=== PATIENT | male | born 1995 | race Asian ===

== ENCOUNTER 2017-07-23 13:10 | Emergency (ER) | payer OTHER ==
[~2017-07-23] VITALS: Ht 175.3 cm; Wt 63.0 kg
[~2017-07-23 13:10] MED LIST: METH750T2 PO; MOBI15TA PO
[2017-07-23 13:20] VITALS: BP 129/80; PULSE 76; RESP 18; TEMP 98.9; O2SAT 100
[2017-07-23] MEDS ORDERED: SODIUM CHLOR 0.9% 1000 ML INJ 1,000 ML IV SCH (13:23)
[2017-07-23] MEDS ORDERED: ONDANSETRON HCL 4 MG/2 ML VIAL IVP ONE (13:30)
[2017-07-23] MEDS ORDERED: SODIUM CHLORIDE 0.9% FLUSH 10 ML FLUSH IV FLUSH PRN (13:30)
--- NOTE | 2017-07-23 13:33 | PD ---
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 Patient was brought in by ambulance with IV in place and status post 4 mg Zofran IV with improvement of his nausea and vomiting. Patient denies headache, lightheadedness, vertiginous symptoms, or recent illnesses. He denies sinus congestion. He has no cough, abdominal pain, or urinary symptoms. Patient states he has had similar symptoms to this in the past when the wind was rough. He has no known drug allergies. [facility]LY [facility] Social History Alcohol Use: No Tobacco Use: No Substance Use: No Allergies-Medications (Allergen,Severity, Reaction): Coded Allergies: No Known Allergies (Unverified , 12/13/14) Reported Meds & Prescriptions Reported Meds & Active Scripts Active Robaxin (Methocarbamol) 750 Mg Tab 750 Mg PO QID Mobic (Meloxicam) 15 Mg Tab 15 Mg PO DAILY Review of Systems Except as stated in HPI: all other systems reviewed are Neg General / Constitutional: No: Fever Eyes: No: Visual changes HENT: Positive: Vertigo, No: Headaches, Lightheadedness, Sore Throat, Rhinitis , Rhinorrhea, Congestion, Nosebleed, Neck Stiffness, Neck Pain, Masses, Dental Difficulties, Earache Cardiovascular: No: Chest Pain or Discomfort Respiratory: No: Shortness of Breath Gastrointestinal: Positive: Nausea, Vomiting, No: Diarrhea, Abdominal Pain Genitourinary: No: Dysuria Musculoskeletal: No: Pain Skin: No Rash Neurologic: No: Weakness Psychiatric: No: Depression Endocrine: No: Polydipsia Hematologic/Lymphatic: No: Easy Bruising Physical Exam Narrative GENERAL: Patient appears in good spirits and is smiling upon exam per SKIN: Warm and dry. Normal color. Normal turgor. HEAD: Atraumatic. Normocephalic. EYES: Pupils equal and round. No scleral icterus. No injection or drainage. Ocular motions are full bilaterally without nystagmus. ENT: No nasal bleeding or discharge. Mucous membranes pink and moist. Pharynx is clear. Airways patent. TMs are clear bilaterally. No sinus tenderness to palpation or percussion. NECK: Trachea midline. Supple and nontender. CARDIOVASCULAR: Regular rate and rhythm. RESPIRATORY: No accessory muscle use. Clear to auscultation. Breath sounds equal bilaterally. GASTROINTESTINAL: Abdomen soft, non-tender, nondistended. Hepatic and splenic margins not palpable. MUSCULOSKELETAL: Extremities without clubbing, cyanosis, or edema. No obvious deformities. NEUROLOGICAL: Awake and alert. No obvious cranial nerve deficits. Motor grossly within normal limits. Five out of 5 muscle strength in the arms and legs. Normal speech. PSYCHIATRIC: Appropriate mood and affect; insight and judgment normal. Data Data Last Documented VS Vital Signs Date Time Temp Pulse Resp B/P (MAP) Pulse Ox O2 Delivery O2 Flow Rate FiO2 07/23/17 14:03 100 Room Air 07/23/17 13:50 80 115/65 (82) 72 117/70 (86) 72 139/79 (99) 07/23/17 13:20 98.9 18 Orders Orders Complete Blood Count With Diff (07/23/17 13:23) Comprehensive Metabolic Panel (07/23/17 13:23) Lactic Acid (07/23/17 13:23) Urinalysis - C+S If Indicated (07/23/17 13:23) Iv Access Insert/Monitor (07/23/17 13:23) Ecg Monitoring (07/23/17 13:23) Oximetry (07/23/17 13:23) Ondansetron Inj (Zofran Inj) (07/23/17 13:30) Sodium Chlor 0.9% 1000 Ml Inj (Ns 1000 M (07/23/17 13:23) Sodium Chloride 0.9% Flush (Ns Flush) (07/23/17 13:30) Magnesium (Mg) (07/23/17 13:23) Orthostatic Vital Signs (07/23/17 13:23) Labs Laboratory Tests Test 07/23/17 13:50 07/23/17 14:45 White Blood Count 10.9 TH/MM3 Red Blood Count 4.47 MIL/MM3 Hemoglobin 14.3 GM/DL Hematocrit 41.3 % Mean Corpuscular Volume 92.3 FL Mean Corpuscular Hemoglobin 31.9 PG Mean Corpuscular Hemoglobin Concent 34.6 % Red Cell Distribution Width 12.6 % Platelet Count 210 TH/MM3 Mean Platelet Volume 8.3 FL Neutrophils (%) (Auto) 83.2 % Lymphocytes (%) (Auto) 10.6 % Monocytes (%) (Auto) 5.7 % Eosinophils (%) (Auto) 0.3 % Basophils (%) (Auto) 0.2 % Neutrophils # (Auto) 9.1 TH/MM3 Lymphocytes # (Auto) 1.2 TH/MM3 Monocytes # (Auto) 0.6 TH/MM3 Eosinophils # (Auto) 0.0 TH/MM3 Basophils # (Auto) 0.0 TH/MM3 CBC Comment DIFF FINAL Differential Comment Blood Urea Nitrogen 13 MG/DL Creatinine 1.07 MG/DL Random Glucose 79 MG/DL Total Protein 7.1 GM/DL Albumin 4.0 GM/DL Calcium Level 9.2 MG/DL Magnesium Level 2.0 MG/DL Alkaline Phosphatase 71 U/L Aspartate Amino Transf (AST/SGOT) 17 U/L Alanine Aminotransferase (ALT/SGPT) 18 U/L Total Bilirubin 0.8 MG/DL Sodium Level 142 MEQ/L Potassium Level 3.7 MEQ/L Chloride Level 109 MEQ/L Carbon Dioxide Level 22.5 MEQ/L Anion Gap 11 MEQ/L Estimat Glomerular Filtration Rate 86 ML/MIN Lactic Acid Level 2.4 mmol/L Urine Color LIGHT-YELLOW Urine Turbidity HAZY Urine pH 8.0 Urine Specific [place] 1.008 Urine Protein NEG mg/dL Urine Glucose (UA) NEG mg/dL Urine Ketones NEG mg/dL Urine Occult Blood NEG Urine Nitrite NEG Urine Bilirubin NEG Urine Urobilinogen LESS THAN 2.0 MG/DL Urine Leukocyte Esterase MOD Urine RBC LESS THAN 1 /hpf Urine WBC 3 /hpf Urine Squamous Epithelial Cells 1 /hpf Urine Amorphous Sediment RARE Microscopic Urinalysis Comment CULT NOT INDICATED MDM Medical Decision Making Medical Screen Exam Complete: Yes Emergency Medical Condition: Yes Differential Diagnosis Acute nausea and vomiting. Air sickness. Vertigo. Narrative Course Patient appears medically stable at time of exam IV access is maintained. Labs ordered including CBC, CMP, magnesium as well as urinalysis. Patient is given an additional 4 mg Zofran IV as well as 2 L normal saline bolus. Orthostatic blood pressures are ordered. CBC is unremarkable. CMP shows normal sodium, normal potassium, chloride 109, carbon dioxide is 22.5. Normal BUN and creatinine. Lactic acid is elevated at 2.4. Magnesium is normal at 2.0 Urinalysis is unremarkable. Patient is not orthostatic. Patient feels improved after the above treatment. Patient is felt stable for discharge. Patient is to rest, push fluids, follow-up as needed. Diagnosis Primary Impression: Airplane sickness Qualified Codes: T75.3XXA - Motion sickness, initial encounter Additional Impression: Nausea and vomiting Qualified Codes: R11.2 - Nausea with vomiting, unspecified Patient Instructions: General Instructions Additional Instructions: CBC is unremarkable. CMP shows normal sodium, normal potassium, chloride 109, carbon dioxide is 22.5. Normal BUN and creatinine. Lactic acid is elevated at 2.4. Magnesium is normal at 2.0 Urinalysis is unremarkable. Patient is not orthostatic. Patient feels improved after the above treatment. Patient is felt stable for discharge. Patient is to rest, push fluids, follow-up as needed. Med/Other Pt SpecificInfo: Prescription(s) given Disposition: DISCHARGE HOME Condition: Stable Jensen Junior July 23, 2017 13:33
[2017-07-23 13:50] VITALS: BP_SYST 115; BP_SYST 117; BP_SYST 139; BP_DIAS 65; BP_DIAS 70; BP_DIAS 79; O2SAT 100
[2017-07-23 14:03] LABS: AUTOMATED NEUTROPHIL # 9.1 TH/MM3 (1.8-7.7); BASOPHIL % 0.2 % (0.0-2.0); EOSINOPHIL % 0.3 % (0.0-4.0); HEMATOCRIT 41.3 % (39.0-51.0); HEMOGLOBIN 14.3 GM/DL (13.0-17.0); LYMPH % 10.6 % (9.0-44.0); LYMPHOCYTE # 1.2 TH/MM3 (1.0-4.8); MEAN CELL VOLUME 92.3 FL (80.0-100.0); MEAN CORPUSCULAR HEMOGLOBIN 31.9 PG (27.0-34.0); MEAN CORPUSCULAR HGB CONC 34.6 % (32.0-36.0); MEAN PLATELET VOLUME 8.3 FL (7.0-11.0); MONO % 5.7 % (0.0-8.0); MONOCYTE # 0.6 TH/MM3 (0-0.9); NEUT % 83.2 % (16.0-70.0); PLATELET COUNT 210 TH/MM3 (150-450); RED BLOOD COUNT 4.47 MIL/MM3 (4.50-5.90); RED CELL DISTRIBUTION WIDTH 12.6 % (11.6-17.2); WHITE BLOOD COUNT 10.9 TH/MM3 (4.0-11.0)
[2017-07-23 14:24] LABS: ALT (GPT) 18 U/L (12-78); AST (GOT) 17 U/L (15-37); BICARBONATE 22.5 MEQ/L (21.0-32.0); BLOOD UREA NITROGEN 13 MG/DL (7-18); CALCIUM 9.2 MG/DL (8.5-10.1); CHLORIDE 109 MEQ/L (98-107); CREATININE 1.07 MG/DL (0.60-1.30); GLOMERULAR FILTRATION RATE 86 ML/MIN (>89); GLUCOSE,RANDOM 79 MG/DL (74-106); SODIUM (NA) 142 MEQ/L (136-145)
[2017-07-23 14:26] LABS: ALKALINE PHOSPHATASE 71 U/L (45-117); TOTAL BILIRUBIN ADULT 0.8 MG/DL (0.2-1.0); TOTAL PROTEIN 7.1 GM/DL (6.4-8.2)
[2017-07-23 15:00] LABS: AMORPHOUS SEDIMENT, URINE RARE; BILIRUBIN, URINE NEG (NEG); BLOOD, URINE NEG (NEG); GLUCOSE,URINE NEG (NEG); KETONE, URINE NEG (NEG); NITRITE,URINE NEG (NEG); SQUAMOUS EPITHELIAL CELL URINE 1 /hpf (0-5); URINE COLOR LIGHT-YELLOW (YELLW/STRAW); URINE LEUKOCYTE ESTERASE MOD (NEG)
[2017-07-23] MEDS ORDERED: ZOFR4TAB PO (15:45)
[2017-07-23 16:27] VITALS: BP 123/62
== END 2017-07-23 16:29 | disposition home or self-care (01) ==
LOC: NEPD 13:10
DX: T75.3XXA Motion sickness, initial encounter (principal); Y92.813 Airplane as the place of occurrence of the external cause; R11.2 Nausea with vomiting, unspecified
CPT/HCPCS: 80053; 81001; 83605; 83735; 85025; 96360; 99284; J7030